=== PATIENT | female | born 1930 | race Caucasian/White ===

== ENCOUNTER 2017-09-05 10:28 | Emergency (ER) | payer BC ==
[~2017-09-05] VITALS: Ht 152.4 cm; Wt 61.2 kg
[~2017-09-05 10:28] MED LIST: COZ50 PO; ECO81 PO; HYDRALAZINE HC100 MG PO; HYDROCHLOROTH12.5 MG PO; LIPI10 PO; NOR5 PO; PERCOCET1 TA1 PO; XANAX0.5 MG PO
[2017-09-05 10:34] VITALS: Ht 152.4 cm; Wt 61.2 kg
[2017-09-05 12:38] VITALS: BP 139/64
== END 2017-09-05 13:30 | disposition home or self-care (01) ==
LOC: ED 10:28
DX: S39.012A Strain of muscle, fascia and tendon of lower back, initial encounter (principal); S20.212A Contusion of left front wall of thorax, initial encounter; I10 Essential (primary) hypertension; E11.9 Type 2 diabetes mellitus without complications; W19.XXXA Unspecified fall, initial encounter; Y93.89 Activity, other specified; Y92.89 Other specified places as the place of occurrence of the external cause; Y99.8 Other external cause status
CPT/HCPCS: J2270; Q0162

== ENCOUNTER 2018-11-30 14:31 | Emergency (ER) | payer OTHER ==
[~2018-11-30] VITALS: Ht 152.4 cm; Wt 68.0 kg
[2018-11-30 14:47] VITALS: Ht 152.4 cm; Wt 68.0 kg
[2018-11-30 15:45] LABS: BASOPHIL % 0.2 % (0-2); PLATELET COUNT 265 x10^3mcL (130-400); RED CELL DISTRIBUTION WIDTH 14.3 % (11.5-14.5)
[2018-11-30 15:53] LABS: CALCIUM 9.3 mg/dL (8.5-10.1); CHLORIDE SERUM 92 mmol/L (98-107); CREATININE SERUM 1.1 mg/dL (0.6-1.0); GLUCOSE SERUM 262 mg/dL (74-106); POTASSIUM SERUM 4.2 mmol/L (3.5-5.1); SODIUM SERUM 126 mmol/L (136-145)
[2018-11-30 16:05] LABS: ALBUMIN 3.6 g/dL (3.4-5.0); ALKALINE PHOSPHATASE 84 U/L (46-116); ALT/SGPT 17 U/L (14-59); AST/SGOT 12 U/L (15-37); BILIRUBIN TOTAL 0.65 mg/dL (0.20-1.00); CHOLESTEROL 183 mg/dL (<200); LIPASE 73 IU/L (73-393); TOTAL PROTEIN, SERUM 7.3 g/dL (6.4-8.2)
[2018-11-30 16:07] LABS: HDL CHOLESTEROL 73 mg/dL (40-60); T4(THYROXINE) 14.4 ug/dL (4.7-13.3)
[2018-11-30 16:50] LABS: microscopic required? YES; urine erythrocyte NEGATIVE (NEGATIVE)
[2018-11-30 20:59] VITALS: BP 176/64
== END 2018-11-30 21:59 | disposition short-term general hospital (02) ==
LOC: ED 14:31
PROVIDERS: Emergency Medicine
DX: S72.142A Displaced intertrochanteric fracture of left femur, initial encounter for closed fracture (principal); I21.4 Non-ST elevation (NSTEMI) myocardial infarction; E87.1 Hypo-osmolality and hyponatremia; I44.7 Left bundle-branch block, unspecified; I44.0 Atrioventricular block, first degree; E11.22 Type 2 diabetes mellitus with diabetic chronic kidney disease; I12.0 Hypertensive chronic kidney disease with stage 5 chronic kidney disease or end stage renal disease; N18.6 End stage renal disease; Z98.51 Tubal ligation status; Z98.890 Other specified postprocedural states; W01.190A Fall on same level from slipping, tripping and stumbling with subsequent striking against furniture, initial encounter; Y93.89 Activity, other specified; Y92.89 Other specified places as the place of occurrence of the external cause; Y99.8 Other external cause status
CPT/HCPCS: 82962; 83880; J1170; J3490